=== PATIENT | female | born 1940 | race Caucasian/White ===

== ENCOUNTER 2020-08-02 08:56 | Observation (INO) ==
[~2020-08-02 08:56] MED LIST: Buffered Lidocaine 1% SYRIN 1 ml INTRADERM ONE; Famotidine IV 10 MG/ML 2 ml VIAL (20 mg) IV ONE; Lactated Ringers 1000 ml BAG 1,000 ML IV SCH; Lidocaine 1% MPF 5 ML VIAL ONE; ROPIVACAINE 5 MG/ML 30 ML BTL (0.5%) ONE
[2020-08-02] MEDS ORDERED: Famotidine IV 10 MG/ML 2 ml VIAL (20 mg) ONE (09:20)
[2020-08-02] MEDS ORDERED: ceFAZolin 2 GM PREMIX 2 GM/50 ML BAG ONE (09:20)
[2020-08-02] MEDS ORDERED: Ropivacaine 5 MG/ML 20 ML VIAL 0.5% (100 MG) ONE (10:39)
[2020-08-02] MEDS ORDERED: Midazolam 2 mg/2 ml VIAL 1 mg/ml 2 ml VIAL (2 mg) ONE ×2 (10:51→11:11)
[2020-08-02] MEDS ORDERED: DiMENhydriNATE IV 50 mg/ml 1 ml VIAL IV PUSH PRN (11:35)
[2020-08-02] MEDS ORDERED: HYDROcodone/ACETAMIN 5/325 mg TAB PO PRN (11:35)
[2020-08-02] MEDS ORDERED: HYDROmorphone 1 MG/1 ML SYRINGE IV PRN (11:35)
[2020-08-02] MEDS ORDERED: Naloxone 0.4 mg VIAL 0.4 mg/ml 1 ml VIAL IV PRN (11:35)
[2020-08-02] MEDS ORDERED: Propofol 10 MG/ML 20 ML BTL ONE ×2 (12:20→13:15)
[2020-08-02] MEDS ORDERED: Lactulose 30 ml UDC PO PRN (13:02)
[2020-08-02] MEDS ORDERED: diPHENhydraMINE 25 mg TAB PO PRN (13:02)
[2020-08-02] MEDS ORDERED: Ondansetron 4 mg VIAL 2 MG/ML 2 ml VIAL IV PRN (13:02)
[2020-08-02] MEDS ORDERED: diPHENhydraMINE IV 50 MG/ML 1 ml VIAL (BENADRYL) IV PRN (13:02)
[2020-08-02] MEDS ORDERED: Morphine 2 MG/ML SYRINGE IV PRN (13:02)
[2020-08-02] MEDS ORDERED: Magnesium Hydroxide LIQ 30 ML UDC PO PRN (13:02)
[2020-08-02] MEDS ORDERED: Ondansetron ODT 4 mg TAB 4 MG TAB PO PRN (13:02)
[2020-08-02] MEDS ORDERED: HYDROcodone/ACETAMIN 5/325 mg TAB ONE (14:58)
[2020-08-02] MEDS: Lactated Ringers 1000 ml BAG 1,000 ML IV SCH (16:00)
[2020-08-02 16:49] LABS: ABS Basophils 0.1 10^3/ul (0-0.2); ABS Eosinophils 0.1 10^3/ul (0-0.6); ABS Lymphocytes 1.7 10^3/ul (1.0-4.8); ABS Monocytes 0.8 10^3/ul (0-0.8); ABS Neutrophils 6.7 10^3/ul (1.5-7.7); Eosinophil % 1.4 %; Hematocrit 38 % (35-47); Hemoglobin 12.6 g/dL (12.0-16.0); Lymphocyte % 17.9 %; Mean Corpuscular HGB Conc 34 g/dL (31-36); Mean Corpuscular Hemoglobin 31 pg (27-31); Mean Corpuscular Volume 92 fL (80-97); Mean Platelet Volume 9.9 fL (7.4-10.4); Platelet Count 152 10^3/uL (150-450); Red Blood Count 4.09 10^6 /uL (3.70-4.87); Red Cell Distribution Width 13 % (10-15); White Blood Count 9.5 10^3/uL (3.5-10.8)
[2020-08-02 17:15] LABS: Calcium 9.1 mg/dL (8.6-10.3); EGFR African American 68.3 (>60); EGFR Non-African American 56.5 (>60); Magnesium 1.8 mg/dL (1.9-2.7); Potassium 3.8 mmol/L (3.5-5.0)
[2020-08-02] MEDS ORDERED: Potassium Chlor 20 meq TAB.ER PO ONE (18:25)
[2020-08-02] MEDS: HYDROcodone/ACETAMIN 5/325 mg TAB PO PRN (18:58)
[2020-08-02] MEDS: ceFAZolin 1 GM ADVAN 1 GM in NS 0.9% 50 ML 50 ML IVPB SCH (20:09)
[2020-08-02] MEDS: Magnesium Hydroxide LIQ 30 ML UDC PO SCH (20:09)
[2020-08-03] MEDS: HYDROcodone/ACETAMIN 5/325 mg TAB PO PRN ×3 (02:20→11:57)
[2020-08-03] MEDS: ceFAZolin 1 GM ADVAN 1 GM in NS 0.9% 50 ML 50 ML IVPB SCH ×2 (03:47→11:57)
[2020-08-03] MEDS: Lactated Ringers 1000 ml BAG 1,000 ML IV SCH (03:47)
[2020-08-03] MEDS: Magnesium Hydroxide LIQ 30 ML UDC PO SCH (08:31)
[2020-08-03 08:36] LABS: Hematocrit 36 % (35-47); Hemoglobin 12.2 g/dL (12.0-16.0); Mean Platelet Volume 10.2 fL (7.4-10.4); Platelet Count 137 10^3/uL (150-450)
[2020-08-03 08:55] LABS: Calcium 9.1 mg/dL (8.6-10.3); EGFR African American 58.9 (>60); EGFR Non-African American 48.7 (>60); Potassium 4.4 mmol/L (3.5-5.0)
[2020-08-03] MEDS ORDERED: Lisinopril/HCTZ 10/12.5 TA(NF) PO SCH ×2 (09:00)
[2020-08-03] MEDS ORDERED: Vitamin THERAPEUTIC TAB PO SCH (09:00)
[2020-08-03 11:12] VITALS: BP 118/61
== END 2020-08-03 12:32 | disposition home or self-care (01) ==
LOC: INTOOBSV 08:56 → AA 08:56 → SSU 13:02
PROVIDERS: ADMIT Orthopaedic Surgery Adult Reconstructive Orthopaedic Surgery; ATTEND Orthopaedic Surgery Adult Reconstructive Orthopaedic Surgery